=== PATIENT | male | born 1995 ===

== ENCOUNTER 2018-04-26 17:28 | Inpatient (IN) | payer OTHER ==
[2018-04-26] MEDS ORDERED: Sodium Chloride 0.9% 1,000 ML IV STA (18:45)
--- NOTE | 2018-04-26 18:48 | ED PDOC ---
HPI: General Adult Time Seen by Provider: 04/26/18 18:39 Chief Complaint (Nursing): Abdominal Pain Chief Complaint (Provider): abdominal pain History Per: Patient (23 y/o male here with RLQ pain noted x 2 days. Denies any vomiting/diarrhea/ fevers/chills/dysuria) Past Medical History Reviewed: Historical Data, Nursing Documentation, Vital Signs Vital Signs: Last Vital Signs Temp 97.5 F L 04/26/18 18:17 Pulse 87 04/26/18 18:17 Resp 16 04/26/18 18:17 BP 143/80 04/26/18 18:17 Pulse Ox 99 04/26/18 18:17 - Family History Family History: States: No Known Family Hx - Home Medications Home Medications: Ambulatory Orders Medication Instructions Recorded RX: No Known Home Med 04/26/18 - Allergies Allergies/Adverse Reactions: Allergies Allergy/AdvReac Type Severity Reaction Status Date / Time No Known Allergies Allergy Verified 04/26/18 18:17 Review of Systems ROS Statement: Except As Marked, All Systems Reviewed And Found Negative Gastrointestinal: Positive for: Abdominal Pain Physical Exam - Reviewed Nursing Documentation Reviewed: Yes Vital Signs Reviewed: Yes - Physical Exam Appears: Positive for: Well, Non-toxic, No Acute Distress Head Exam: Positive for: ATRAUMATIC, NORMAL INSPECTION, NORMOCEPHALIC Skin: Positive for: Normal Color, Warm, DRY Eye Exam: Positive for: EOMI, Normal appearance, PERRL ENT: Positive for: Normal ENT Inspection Neck: Positive for: Normal, Painless ROM Cardiovascular/Chest: Positive for: Regular Rate, Rhythm Respiratory: Positive for: CNT, Normal Breath Sounds Gastrointestinal/Abdominal: Positive for: Normal Exam, Soft, Tenderness (right upper/lower quadrant tenderness. (+) CVA tenderness) Back: Positive for: Normal Inspection Extremity: Positive for: Normal ROM Neurologic/Psych: Positive for: Alert, Oriented - Laboratory Results Result Diagrams: 04/26/18 18:45 04/26/18 18:45 Urine dip results: Negative for: Leukocyte Esterase, Blood, Nitrate, Ketones, Glucose, Bilirubin, Protein - ECG O2 Sat by Pulse Oximetry: 99 - Progress ED Course And Treament: NS 1 LITER 500ML PER HOUR TORADOL 15 MG IV X DOSE Disposition - Clinical Impression Clinical Impression: Appendicitis - Patient ED Disposition Is Patient to be Admitted: Transfer of Care - Disposition Disposition: Transfer of Care Disposition Time: 20:00 Condition: FAIR Patient Signed Over To: Wendy Muir Handoff Comments: pending ct abd/pelvis
[2018-04-26 18:58] LABS: BASO % 0.4 % (0.0-2.0); EOS # 0.1 K/uL (0.0-0.7); HEMOGLOBIN 14.2 g/dL (12.0-18.0); LYMPH # 1.4 K/uL (1.0-4.3); LYMPH % 14.1 % (20.0-40.0); MEAN CELL VOLUME 83.9 fl (80.0-94.0); MEAN CORPUSCULAR HEMOGLOBIN 27.8 pg (27.0-31.0); MEAN CORPUSCULAR HGB CONC 33.1 g/dL (33.0-37.0); MEAN PLATELET VOLUME 9.2 fl (7.2-11.7); MONO # 0.8 K/uL (0.0-0.8); MONO % 7.7 % (0.0-10.0); NEUT # 7.5 K/uL (1.8-7.0); NEUT % 76.8 % (50.0-75.0); RBC 5.11 Mil/uL (4.40-5.90); RED CELL DISTRIBUTION WIDTH 13.1 % (11.5-14.5); WHITE BLOOD COUNT 9.8 K/uL (4.8-10.8)
[2018-04-26 19:04] LABS: SQUAMOUS EPITHIAL < 1 /hpf (0-5); URINE BILIRUBIN NEGATIVE (NEGATIVE); URINE BLOOD NEGATIVE (NEGATIVE); URINE CLARITY SLIGHTY-CLOUDY (Clear); URINE COLOR YELLOW (YELLOW); URINE GLUCOSE (UA) NEG (NEGATIVE); URINE LEUKOCYTE ESTERASE NEG Leu/uL (Negative); URINE PROTEIN 30 mg/dL (NEGATIVE); URINE UROBILINOGEN 0.2-1.0 mg/dL (0.2-1.0)
[2018-04-26 19:13] LABS: ALB/GLOB RATIO 1.3 (1.0-2.1); ALBUMIN 4.9 g/dL (3.5-5.0); ALT/SGPT 33 U/L (21-72); AST/SGOT 33 U/L (17-59); BLOOD UREA NITROGEN 17 mg/dl (9-20); CALCIUM 9.7 mg/dL (8.4-10.2); GFR NON-AFRICAN AMERICAN > 60; LIPASE 39 U/L (23-300)
[2018-04-26] MEDS ORDERED: Iohexol 300 100 ML IJ ONE (19:28)
[2018-04-26] MEDS ORDERED: Sodium Chloride 0.9% 50 ML IV ONE (19:29)
--- NOTE | 2018-04-26 20:39 | ED PDOC ---
- Laboratory Results Result Diagrams: 04/26/18 18:45 04/26/18 18:45 Lab Results: Total Bilirubin 0.7 mg/dl (0.2-1.3) 04/26/18 18:45 AST 33 U/L (17-59) 04/26/18 18:45 ALT 33 U/L (21-72) 04/26/18 18:45 Alkaline Phosphatase 84 U/L (38-126) 04/26/18 18:45 Total Protein 8.7 G/DL (6.3-8.2) H 04/26/18 18:45 Albumin 4.9 g/dL (3.5-5.0) 04/26/18 18:45 Globulin 3.8 gm/dL (2.2-3.9) 04/26/18 18:45 Albumin/Globulin Ratio 1.3 (1.0-2.1) 04/26/18 18:45 Lipase 39 U/L (23-300) 04/26/18 18:45 Urine Color Yellow (YELLOW) 04/26/18 18:45 Urine Clarity Slighty-cloudy (Clear) 04/26/18 18:45 Urine pH 6.0 (5.0-8.0) 04/26/18 18:45 Ur Specific [place] 1.026 (1.003-1.030) 04/26/18 18:45 Urine Protein 30 mg/dL (NEGATIVE) 04/26/18 18:45 Urine Glucose (UA) Neg mg/dL (NEGATIVE) 04/26/18 18:45 Urine Ketones Negative mg/dL (NEGATIVE) 04/26/18 18:45 Urine Blood Negative (NEGATIVE) 04/26/18 18:45 Urine Nitrate Negative (NEGATIVE) 04/26/18 18:45 Urine Bilirubin Negative (NEGATIVE) 04/26/18 18:45 Urine Urobilinogen 0.2-1.0 mg/dL (0.2-1.0) 04/26/18 18:45 Ur Leukocyte Esterase Neg Louis/uL (Negative) 04/26/18 18:45 Urine RBC (Auto) 1 /hpf (0-3) 04/26/18 18:45 Urine Microscopic WBC 1 /hpf (0-5) 04/26/18 18:45 Ur Squamous Epith Cells < 1 /hpf (0-5) 04/26/18 18:45 - ECG ECG: Positive for: Viewed By Me (reviewed by ED attending) ECG Rhythm: Positive for: Sinus Rhythm O2 Sat by Pulse Oximetry: 99 - Radiology X-Ray: Viewed By Me X-Ray Interpretation: No Acute Disease - Progress ED Course And Treament: Case endorsed to race and sports book writer from [facility] ORTIZ pending CT EXAM: CT Abdomen and Pelvis with IV contrast CLINICAL HISTORY: R/O APPENDICITES TECHNIQUE: Axial computed tomography images of the abdomen and pelvis with intravenous contrast. 476.54 mGy-cm CONTRAST: With; [id number] 95ML COMPARISON: None provided. FINDINGS: LUNG BASES: The lung bases appear clear. No pleural effusions are seen. LIVER: Unremarkable. GALLBLADDER AND BILE DUCTS: The gallbladder appears within normal limits. No radioopaque gallstones are seen. No biliary ductal dilatation is evident. PANCREAS: Unremarkable. SPLEEN: Unremarkable. ADRENAL GLANDS: Unremarkable. KIDNEYS, URETERS, AND BLADDER: The kidneys appear within normal limits. There is no hydronephrosis or hydrouret er. No urinary calculi are seen. STOMACH AND BOWEL: Unremarkable appearance of the stomach and bowel. No evidence of bowel obstruction. No evidence suggesting enteritis or colitis. APPENDIX: Dilated fluid-filled appendix with adjacent inflammatory stranding consistent with acute appendicitis. No abscess or perforation PERITONEUM: No free fluid. No free air. LYMPH NODES: No lymphadenopathy is evident. REPRODUCTIVE: Unremarkable as visualized. VASCULATURE: No evidence of abdominal aortic aneurysm. BONES: No aggressive appearing osseous lesion. No acute osseous pathology evident. IMPRESSION: Acute appendicitis. No abscess or perforation Patient educated on findings via [employer] certified court interpreter #[id number] IV zosyn dose ordered Case discussed with Dr. Robertson, surgical instrument repair specialist on-call, for admission Disposition - Clinical Impression Clinical Impression: Appendicitis - POA Present On Arrival: None - Disposition Disposition: Admitted as In-Patient Disposition Time: 22:08 Condition: FAIR
[2018-04-26] MEDS ORDERED: Piperacillin/Tazobact 3.375 GM in Sodium Chloride 0.9% 100 ML IV ONE (20:46)
[2018-04-26] MEDS ORDERED: Piperacillin/Tazobact 3.375 gm Inj IVPB ONE (21:47)
[2018-04-26] MEDS: Lactated Ringer's 1,000 ML IV SCH (21:50)
--- NOTE | 2018-04-26 21:52 | CP.PCM.HP ---
History of Present Illness - History of Present Illness History of Present Illness: 23M with no significant past medical history presents to [facility] ED with complaints of abdominal pain. Patient states pain began in RLQ yesterday night around 7PM. As per patient pain kept progressing as time went on. Rates pain as 9/10. Denies fever/chills, chest pain, SOB, nausea/vomiting, diarrhea, dysuria. PMHx: none PSHx:none Allergies: NKDA Fam Hx: non-contributory Present on Admission - Present on Admission Any Indicators Present on Admission: No Review of Systems - Review of Systems Review of Systems: 10 pt ROS negative except as stated in HPI Past Patient History - Past Social History Smoking Status: Never Smoked - PSYCHIATRIC Hx Substance Use: No - SURGICAL HISTORY Hx Surgeries: No Meds Allergies/Adverse Reactions: Allergies Allergy/AdvReac Type Severity Reaction Status Date / Time No Known Allergies Allergy Verified 04/26/18 18:17 Physical Exam - Constitutional Appears: No Acute Distress - Head Exam Head Exam: NORMOCEPHALIC - Eye Exam Eye Exam: EOMI, Normal appearance - ENT Exam ENT Exam: Mucous Membranes Moist - Respiratory Exam Respiratory Exam: NORMAL BREATHING PATTERN - Cardiovascular Exam Cardiovascular Exam: +S1, +S2 - GI/Abdominal Exam GI & Abdominal Exam: Rebound, Soft, Tenderness. absent: Distended, Guarding, Rigid Additional comments: +McBurney's +RLQ tenderness +Rovsing's +rebound - Neurological Exam Neurological exam: Alert, Oriented x3 - Psychiatric Exam Psychiatric exam: Normal Mood - Skin Skin Exam: Dry, Intact, Warm Results - Vital Signs Recent Vital Signs: Last Vital Signs Temp 97.5 F L 04/26/18 18:17 Pulse 87 04/26/18 18:17 Resp 16 04/26/18 18:17 BP 143/80 04/26/18 18:17 Pulse Ox 99 04/26/18 21:05 - Labs Result Diagrams: 04/26/18 18:45 04/26/18 18:45 Labs: Laboratory Results - last 24 hr 04/26/18 04/26/18 04/26/18 18:45 18:45 18:45 WBC 9.8 RBC 5.11 Hgb 14.2 Hct 42.9 MCV 83.9 MCH 27.8 MCHC 33.1 RDW 13.1 Plt Count 264 MPV 9.2 Neut % (Auto) 76.8 H Lymph % (Auto) 14.1 L [place] % (Auto) 7.7 Eos % (Auto) 1.0 Baso % (Auto) 0.4 Neut # (Auto) 7.5 H Lymph # (Auto) 1.4 [place] # (Auto) 0.8 Eos # (Auto) 0.1 Baso # (Auto) 0.0 Sodium 139 Potassium 3.6 Chloride 98 Carbon Dioxide 26 Anion Gap 19 BUN 17 Creatinine 0.8 Est GFR ( Amer) > 60 Est GFR (Non-Af Amer) > 60 Random Glucose 120 H Calcium 9.7 Total Bilirubin 0.7 AST 33 ALT 33 Alkaline Phosphatase 84 Total Protein 8.7 H Albumin 4.9 Globulin 3.8 Albumin/Globulin Ratio 1.3 Lipase 39 Urine Color Yellow Urine Clarity Slighty-cloudy Urine pH 6.0 Ur Specific [place] 1.026 Urine Protein 30 Urine Glucose (UA) Neg Urine Ketones Negative Urine Blood Negative Urine Nitrate Negative Urine Bilirubin Negative Urine Urobilinogen 0.2-1.0 Ur Leukocyte Esterase Neg Urine RBC (Auto) 1 Urine Microscopic WBC 1 Ur Squamous Epith Cells < 1 Assessment & Plan - Assessment and Plan (Free Text) Assessment: 23M with acute appendicitis Plan: -NPO -IVF -ABx -Analgesic/Anti-emetics prn -SCDs -Plan for OR for laparoscopic appendectomy possible open -Further recs per Dr. Sergio Kwan PGY3
[2018-04-26 22:48] LABS: INR 1.2; PROTHROMBIN TIME 13.2 Seconds (9.8-13.1)
[2018-04-26 22:51] LABS: PARTIAL THROMBOPLASTIN TIME 34.3 Seconds (25.6-37.1)
[2018-04-27] MEDS: Piperacillin/Tazobact 3.375 GM in Sodium Chloride 0.9% 100 ML IVPB SCH ×5 (00:20→21:46)
[2018-04-27] MEDS: Morphine 4 MG/ML VIAL IVP PRN ×2 (02:09→08:59)
[2018-04-27] MEDS: Lactated Ringer's 1,000 ML IV SCH ×2 (04:28→23:01)
--- NOTE | 2018-04-27 09:19 | CARD ---
APPROVED REPORT Date of service: 04/26/2018 EKG Measurement Heart [id number] <Conclusion> Normal sinus rhythm Rightward axis Borderline ECG
[2018-04-27] MEDS ORDERED: Lidocaine 1% Inj (20ml) ONE (11:19)
[2018-04-27] MEDS ORDERED: Bupivacaine 0.5% Inj(30mL) ONE (11:20)
[2018-04-27] MEDS ORDERED: Succinylcholine Chloride 20 mg/ml Syr (5 ml) IV ONE (11:36)
[2018-04-27] MEDS ORDERED: Midazolam 2 MG/2 ML VIAL ONE (11:36)
[2018-04-27] MEDS ORDERED: Propofol 10 mg/ml Inj (20 ML) ONE (11:36)
[2018-04-27] MEDS ORDERED: Rocuronium 10 mg/ml (5 ml) ONE (11:36)
[2018-04-27] MEDS ORDERED: Lidocaine 4% (Laryng-O-Jet) Kit MM ONE (11:38)
[2018-04-27] MEDS ORDERED: Bupivacaine HCl 0.5% PF (30 ml) Inj ONE (11:40)
[2018-04-27] MEDS ORDERED: Lidocaine 2% Inj (20ml) ONE (11:41)
[2018-04-27] MEDS ORDERED: Lactated Ringer's 1,000 ML IV ONE (12:00)
--- NOTE | 2018-04-27 12:15 | CT ---
Date of service: 04/26/2018 PROCEDURE: CT Abdomen and Pelvis with contrast HISTORY: R/O APPENDICITIS COMPARISON: This is statistically significant at the 95 percent confidence level TECHNIQUE: Intravenous contrast dose: 95 cc Omnipaque 300 Radiation dose: Total exam DLP = 476.5 mGy-cm. This CT exam was performed using one or more of the following dose reduction techniques: Automated exposure control, adjustment of the mA and/or kV according to patient size, and/or use of iterative reconstruction technique. FINDINGS: LOWER THORAX: Unremarkable. LIVER: Unremarkable. No gross lesion or ductal dilatation. GALLBLADDER AND BILE DUCTS: Unremarkable. PANCREAS: Unremarkable. No gross lesion or ductal dilatation. SPLEEN: Unremarkable. ADRENALS: Unremarkable. No mass. KIDNEYS AND URETERS: Unremarkable. No hydronephrosis. No solid mass. VASCULATURE: Unremarkable. No aortic aneurysm. No atherosclerotic calcification or mural plaque present. BOWEL: Unremarkable. No obstruction. No gross mural thickening. APPENDIX: Acute appendicitis. The appendix is edematous, periappendiceal inflammatory changes noted. No drainable collection. PERITONEUM: Unremarkable. No free fluid. No free air. LYMPH NODES: Unremarkable. No enlarged lymph nodes. BLADDER: Unremarkable. REPRODUCTIVE: Unremarkable. BONES: No acute fracture. OTHER FINDINGS: None. IMPRESSION: Acute, uncomplicated appendicitis. Concordant results (preliminary interpretation) provided by [facility]. Procedure Completed: 19:35. Preliminary Report: Dictated and Authenticated: 20:37. Final Interpretation: 12:11. 2018
[2018-04-27] MEDS ORDERED: Neostigmine 1:1000 (1 mg/ml) Inj ONE (12:32)
--- NOTE | 2018-04-27 13:21 | PCM.SURG1 ---
Surgeon's Initial Post Op Note - Surgeon's Notes Surgeon: Dr. Hill [place] Leverman: Dr. Alexandra Heard Type of Anesthesia: General Endo, Local Pre-Operative Diagnosis: acute appendicitis Operative Findings: acutely inflammed appendix Post-Operative Diagnosis: acute appendicitis Operation Performed: laparoscopic appendectomy Specimen/Specimens Removed: appendix Estimated Blood Loss: EBL {In ML}: 5 Blood Products Given: N/A Drains Used: No Drains Post-Op Condition: Good Date of Surgery/Procedure: 04/27/18 Time of Surgery/Procedure: 13:21
[2018-04-27] MEDS ORDERED: HYDROmorphone 0.5 mg/0.5 ml ISec IVP PRN (13:33)
--- NOTE | 2018-04-27 14:02 | RAD ---
Date of service: 04/26/2018 HISTORY: Admission COMPARISON: No prior. TECHNIQUE: Chest PA and lateral FINDINGS: LUNGS: No active pulmonary disease. PLEURA: No significant pleural effusion identified. No pneumothorax apparent. CARDIOVASCULAR: No aortic atherosclerotic calcification present. Normal cardiac size. No pulmonary vascular congestion. OSSEOUS STRUCTURES: No significant abnormalities. VISUALIZED UPPER ABDOMEN: Normal. OTHER FINDINGS: None. IMPRESSION: No active disease.
[2018-04-28 01:56] VITALS: RESP 20
[2018-04-28] MEDS: Piperacillin/Tazobact 3.375 GM in Sodium Chloride 0.9% 100 ML IVPB SCH (05:29)
[2018-04-28 06:11] VITALS: TEMP 98.2; O2SAT 99
--- NOTE | 2018-04-28 06:55 | OP ---
PROCEDURE DATE: 04/27/2018 SURGEON: Matt Hill MD SYSTEMS DEVELOPMENT MANAGER: Emily Morris DO, PGY-4 and Genaro Heard DO, PGY-2 PREOPERATIVE DIAGNOSIS: Acute appendicitis. POSTOPERATIVE DIAGNOSIS: Acute appendicitis. ESTIMATED BLOOD LOSS: 5 mL. PROCEDURE: Laparoscopic appendectomy. INDICATIONS: This is a 23-year-old male who presented with right lower quadrant pain for two days of duration. Imaging and CT scan was performed in the emergency department and was confirmed acute appendicitis. Symptoms and imaging correlated. Decision was made to undergo laparoscopic possible open appendectomy. Consent was obtained explaining the risks and benefits of the procedure and the patient agreed. DESCRIPTION OF PROCEDURE: The patient was brought into the operating room and placed on the operating table in supine position. General anesthesia was then induced. The patient was intubated successfully. A time-out was taken verifying correct patient, procedure, site and positioning. A Elder catheter was inserted and immediately 500 mL of clear urine came out. The abdomen was prepped and draped in usual sterile fashion using chlorhexidine. A vertical infraumbilical skin incision was made as 5-mm port. A Veress needle technique was used to enter into the abdomen. The fascia was elevated and the Veress needle was inserted. Proper position was confirmed by aspiration and saline meniscus test. A 5-mm trocar was then inserted under direct visualization using a Visiport technique. The abdomen was subsequently insufflated with carbon dioxide to a pressure of 15 mmHg. The patient tolerated the insufflation well. Laparoscope was then inserted and the abdomen wound was inspected. No injuries from the initial trocar placement was noted. Upon inspection to the abdomen, there was fluid in the right lower quadrant and paracolic gutter. Under direct visualization, a 5-mm trocar was placed suprapubic and a 12-mm trocar was placed in the left lower quadrant just lateral to the rectus muscle. Care was taken to avoid injury to the bladder or inferior epigastric vessels. The patient was then placed in Trendelenburg and right side elevated. The bowel was swept away and the appendix was visualized successfully. The mesoappendix distally close to the tip of the appendix was grasped with atraumatic graspers. A [place] was then inserted through the 12-mm port and the appendix was dissected appropriately. The appendix was then grasped and elevated and it was noted to be inflamed. After a successful window was made at the base of the appendix from the mesoappendix, the pedicle of the vasculature was taken with a white load BUNNY. This was successfully achieved without any bleeding noted. A second white load used to staple across the remainder of the mesoappendix. We then reloaded it with a blue stapler and the base of the appendix was then stapled with the blue load BUNNY. Careful attention was made where no bowel was introduced directly into the stapler. The appendix was then withdrawn through the 12-mm port and was placed in an endoscopic retrieval bag and removed successfully. The appendiceal stump was then irrigated and hemostasis was appropriately achieved. Fluid was suctioned and all the pathology was identified. The left lateral port was closed with a 0 Vicryl on a UR-6 in a [id number] fashion. The abdomen was then allowed to collapse under direct visualization and no bleeding was noted from the trocar sites. The laparoscope was withdrawn from the umbilical incision and the umbilical trocar was successfully removed. All sites were then closed with 4-0 Monocryl, 5-mm trocar sites were closed with 4-0 Monocryl in an interrupted fashion and the 12-mm was run with the 4-0 Monocryl in a running subcuticular fashion. The skin was closed in the subcuticular manner and was finalized with Dermabond on top. The patient tolerated the procedure well and was taken to post-anesthesia care unit in satisfactory condition. The patient was extubated. All counts were correct at the end of the case. Dr. Hill was present and participated in all aspects of the case. Genaro Heard DO Matt Hill MD
--- NOTE | 2018-04-28 07:47 | CP.PCM.DIS ---
Provider - Provider Date of Admission: 04/26/18 21:03 Attending physician: Matt Hill MD Time Spent in preparation of Discharge (in minutes): 45 Hospital Course - Lab Results Lab Results: Most Recent Lab Values WBC 9.8 K/uL (4.8-10.8) 04/26/18 18:45 RBC 5.11 Mil/uL (4.40-5.90) 04/26/18 18:45 Hgb 14.2 g/dL (12.0-18.0) 04/26/18 18:45 Hct 42.9 % (35.0-51.0) 04/26/18 18:45 MCV 83.9 fl (80.0-94.0) 04/26/18 18:45 MCH 27.8 pg (27.0-31.0) 04/26/18 18:45 MCHC 33.1 g/dL (33.0-37.0) 04/26/18 18:45 RDW 13.1 % (11.5-14.5) 04/26/18 18:45 Plt Count 264 K/uL (130-400) 04/26/18 18:45 MPV 9.2 fl (7.2-11.7) 04/26/18 18:45 Neut % (Auto) 76.8 % (50.0-75.0) H 04/26/18 18:45 Lymph % (Auto) 14.1 % (20.0-40.0) L 04/26/18 18:45 [place] % (Auto) 7.7 % (0.0-10.0) 04/26/18 18:45 Eos % (Auto) 1.0 % (0.0-4.0) 04/26/18 18:45 Baso % (Auto) 0.4 % (0.0-2.0) 04/26/18 18:45 Neut # (Auto) 7.5 K/uL (1.8-7.0) H 04/26/18 18:45 Lymph # (Auto) 1.4 K/uL (1.0-4.3) 04/26/18 18:45 Gray # (Auto) 0.8 K/uL (0.0-0.8) 04/26/18 18:45 Eos # (Auto) 0.1 K/uL (0.0-0.7) 04/26/18 18:45 Baso # (Auto) 0.0 K/uL (0.0-0.2) 04/26/18 18:45 PT 13.2 Seconds (9.8-13.1) H 04/26/18 22:33 INR 1.2 04/26/18 22:33 APTT 34.3 Seconds (25.6-37.1) 04/26/18 22:33 Sodium 139 mmol/l (132-148) 04/26/18 18:45 Potassium 3.6 MMOL/L (3.6-5.0) 04/26/18 18:45 Chloride 98 mmol/L (98-107) 04/26/18 18:45 Carbon Dioxide 26 mmol/L (22-30) 04/26/18 18:45 Anion Gap 19 (10-20) 04/26/18 18:45 BUN 17 mg/dl (9-20) 04/26/18 18:45 Creatinine 0.8 mg/dl (0.8-1.5) 04/26/18 18:45 Est GFR ( Amer) > 60 04/26/18 18:45 Est GFR (Non-Af Amer) > 60 04/26/18 18:45 Random Glucose 120 mg/dL (75-110) H 04/26/18 18:45 Calcium 9.7 mg/dL (8.4-10.2) 04/26/18 18:45 Total Bilirubin 0.7 mg/dl (0.2-1.3) 04/26/18 18:45 AST 33 U/L (17-59) 04/26/18 18:45 ALT 33 U/L (21-72) 04/26/18 18:45 Alkaline Phosphatase 84 U/L (38-126) 04/26/18 18:45 Total Protein 8.7 G/DL (6.3-8.2) H 04/26/18 18:45 Albumin 4.9 g/dL (3.5-5.0) 04/26/18 18:45 Globulin 3.8 gm/dL (2.2-3.9) 04/26/18 18:45 Albumin/Globulin Ratio 1.3 (1.0-2.1) 04/26/18 18:45 Lipase 39 U/L (23-300) 04/26/18 18:45 Urine Color Yellow (YELLOW) 04/26/18 18:45 Urine Clarity Slighty-cloudy (Clear) 04/26/18 18:45 Urine pH 6.0 (5.0-8.0) 04/26/18 18:45 Ur Specific [place] 1.026 (1.003-1.030) 04/26/18 18:45 Urine Protein 30 mg/dL (NEGATIVE) 04/26/18 18:45 Urine Glucose (UA) Neg mg/dL (NEGATIVE) 04/26/18 18:45 Urine Ketones Negative mg/dL (NEGATIVE) 04/26/18 18:45 Urine Blood Negative (NEGATIVE) 04/26/18 18:45 Urine Nitrate Negative (NEGATIVE) 04/26/18 18:45 Urine Bilirubin Negative (NEGATIVE) 04/26/18 18:45 Urine Urobilinogen 0.2-1.0 mg/dL (0.2-1.0) 04/26/18 18:45 Ur Leukocyte Esterase Neg Louis/uL (Negative) 04/26/18 18:45 Urine RBC (Auto) 1 /hpf (0-3) 04/26/18 18:45 Urine Microscopic WBC 1 /hpf (0-5) 04/26/18 18:45 Ur Squamous Epith Cells < 1 /hpf (0-5) 04/26/18 18:45 - Hospital Course Hospital Course: 23M presented to [facility] ED w/ abdominal pain for 1 day duration. Pain localized to RLQ. While in ED work up w/ CT scan showed acute appendicitis. Patient was then taken to the operating for a laparoscopic appendectomy which was successful which visually confirmed acute appendicitis. Post operatively patient course uncomplicated. Patient cleared for discharge home in stable condition. follow up in 1 week in clinic. No lita or sutures need to be removed Discharge Exam - Head Exam Head Exam: NORMOCEPHALIC - Eye Exam Eye Exam: EOMI. absent: Scleral icterus - ENT Exam ENT Exam: Mucous Membranes Moist - Respiratory Exam Respiratory Exam: NORMAL BREATHING PATTERN. absent: Accessory Muscle Use, Resp iratory Distress - Cardiovascular Exam Cardiovascular Exam: REGULAR RHYTHM. absent: Bradycardia, Tachycardia - GI/Abdominal Exam GI & Abdominal Exam: Soft. absent: Firm, Guarding, Hernia, Rebound, Tenderness Discharge Plan - Follow Up Plan Condition: FAIR Disposition: HOME/ ROUTINE Instructions: Appendectomy, Laparoscopic Surgery (DC) Additional Instructions: cleared to shower today. there is "glue" over the incisions. will fall off on its own. Do not soak in bath or go swimming in ocean. no heavy lifting greater than 15 lbs for 4-6 weeks. Can take PO pain meds as needed. If fever greater than 100.4 can take over the counter tylenol. If fever persists and does not resolve, go to the emergency department Call to make follow up appointment in Dr. Hill's clinic in 1-2 weeks Referrals: Matt Hill MD [Staff Provider] - 7days
[2018-04-28 08:06] VITALS: BP 100/63; PULSE 75
== END 2018-04-28 11:29 | disposition home or self-care (01) | DRG 225 ==
LOC: H.ER 17:28 → H.ERHOLD 21:03 → H.MEDSURG1 04-27 01:28
PROVIDERS: ADMIT Surgery; ATTEND Surgery
PROC: 0DTJ4ZZ Resection of Appendix, Percutaneous Endoscopic Approach (ICD-10-PCS; principal; 2018-04-27 12:00)
DX: K35.80 Unspecified acute appendicitis (principal)